=== PATIENT | female | born 1955 | race Caucasian/White ===

== ENCOUNTER 2022-07-11 07:40 | Emergency (ER) | payer OTHER ==
[~2022-07-11] VITALS: Ht 154.9 cm; Wt 72.6 kg
[~2022-07-11 07:40] MED LIST: CEPH500 PO; Norco 5-325 Ta1 EACH PO
[2022-07-11] MEDS ORDERED: CEPH500 PO (07:56)
== END 2022-07-11 11:10 | disposition home or self-care (01) ==
LOC: ER 07:40
DX: I87.2 Venous insufficiency (chronic) (peripheral) (principal); Z88.0 Allergy status to penicillin; Z87.891 Personal history of nicotine dependence
CPT/HCPCS: 99283; A9270

== ENCOUNTER 2022-07-19 00:16 | Day surgery (SDC) | payer SELFPAY | END 2022-07-20 22:39 | disposition home or self-care (01) | LOC: WOUND 00:16 | DX: I87.2 Venous insufficiency (chronic) (peripheral) (principal); L97.812 Non-pressure chronic ulcer of other part of right lower leg with fat layer exposed; L97.822 Non-pressure chronic ulcer of other part of left lower leg with fat layer exposed; I87.313 Chronic venous hypertension (idiopathic) with ulcer of bilateral lower extremity; Z87.891 Personal history of nicotine dependence; Z88.0 Allergy status to penicillin | CPT/HCPCS: A9270; G0463 ==

== ENCOUNTER 2022-07-25 03:36 | Day surgery (SDC) | payer SELFPAY | END 2022-07-25 22:37 | disposition home or self-care (01) | LOC: WOUND 03:36 | DX: I87.313 Chronic venous hypertension (idiopathic) with ulcer of bilateral lower extremity (principal); L97.812 Non-pressure chronic ulcer of other part of right lower leg with fat layer exposed; I87.2 Venous insufficiency (chronic) (peripheral); L97.822 Non-pressure chronic ulcer of other part of left lower leg with fat layer exposed; I73.9 Peripheral vascular disease, unspecified | CPT/HCPCS: G0463 ==

== ENCOUNTER 2022-07-29 00:11 | Day surgery (SDC) | payer SELFPAY | END 2022-07-29 22:35 | disposition home or self-care (01) | LOC: WOUND 00:11 | DX: I87.2 Venous insufficiency (chronic) (peripheral) (principal); I87.313 Chronic venous hypertension (idiopathic) with ulcer of bilateral lower extremity; I73.9 Peripheral vascular disease, unspecified | CPT/HCPCS: G0463 ==

== ENCOUNTER 2022-08-09 00:46 | Day surgery (SDC) | payer SELFPAY | END 2022-08-09 22:50 | disposition home or self-care (01) | LOC: WOUND 00:46 | DX: I87.313 Chronic venous hypertension (idiopathic) with ulcer of bilateral lower extremity (principal); L97.812 Non-pressure chronic ulcer of other part of right lower leg with fat layer exposed; L97.822 Non-pressure chronic ulcer of other part of left lower leg with fat layer exposed; I87.2 Venous insufficiency (chronic) (peripheral); I73.9 Peripheral vascular disease, unspecified | CPT/HCPCS: A9270 ==

== ENCOUNTER 2022-08-23 01:54 | Day surgery (SDC) | payer SELFPAY | END 2022-08-23 23:03 | disposition home or self-care (01) | LOC: WOUND 01:54 | DX: I87.313 Chronic venous hypertension (idiopathic) with ulcer of bilateral lower extremity (principal); I87.2 Venous insufficiency (chronic) (peripheral); I73.9 Peripheral vascular disease, unspecified ==

== ENCOUNTER 2022-08-30 02:24 | Day surgery (SDC) | payer SELFPAY | END 2022-08-30 22:42 | disposition home or self-care (01) | LOC: WOUND 02:24 | DX: I87.313 Chronic venous hypertension (idiopathic) with ulcer of bilateral lower extremity (principal); L97.812 Non-pressure chronic ulcer of other part of right lower leg with fat layer exposed; L97.822 Non-pressure chronic ulcer of other part of left lower leg with fat layer exposed; I87.2 Venous insufficiency (chronic) (peripheral); I73.9 Peripheral vascular disease, unspecified ==

== ENCOUNTER 2022-09-06 00:57 | Day surgery (SDC) | payer OTHER | END 2022-09-06 22:52 | disposition home or self-care (01) | LOC: WOUND 00:57 | DX: I83.018 Varicose veins of right lower extremity with ulcer other part of lower leg (principal); L97.819 Non-pressure chronic ulcer of other part of right lower leg with unspecified severity; L97.829 Non-pressure chronic ulcer of other part of left lower leg with unspecified severity ==

== ENCOUNTER 2022-09-13 02:19 | Day surgery (SDC) | payer OTHER | END 2022-09-13 22:44 | disposition home or self-care (01) | LOC: WOUND 02:19 | DX: I87.313 Chronic venous hypertension (idiopathic) with ulcer of bilateral lower extremity (principal); L97.812 Non-pressure chronic ulcer of other part of right lower leg with fat layer exposed; L97.822 Non-pressure chronic ulcer of other part of left lower leg with fat layer exposed; L97.829 Non-pressure chronic ulcer of other part of left lower leg with unspecified severity; I87.2 Venous insufficiency (chronic) (peripheral); I73.9 Peripheral vascular disease, unspecified ==

== ENCOUNTER 2022-09-20 00:18 | Day surgery (SDC) | payer OTHER | END 2022-09-20 22:57 | disposition home or self-care (01) | LOC: WOUND 00:18 | DX: I87.313 Chronic venous hypertension (idiopathic) with ulcer of bilateral lower extremity (principal); I87.2 Venous insufficiency (chronic) (peripheral); I73.9 Peripheral vascular disease, unspecified ==

== ENCOUNTER 2022-09-27 00:57 | Day surgery (SDC) | payer OTHER | END 2022-09-27 22:53 | disposition home or self-care (01) | LOC: WOUND 00:57 | DX: I87.313 Chronic venous hypertension (idiopathic) with ulcer of bilateral lower extremity (principal); L97.812 Non-pressure chronic ulcer of other part of right lower leg with fat layer exposed; L97.829 Non-pressure chronic ulcer of other part of left lower leg with unspecified severity; I87.2 Venous insufficiency (chronic) (peripheral); I73.9 Peripheral vascular disease, unspecified ==

== ENCOUNTER 2022-10-04 03:36 | Day surgery (SDC) | payer OTHER | END 2022-10-04 22:37 | disposition home or self-care (01) | LOC: WOUND 03:36 | DX: I87.313 Chronic venous hypertension (idiopathic) with ulcer of bilateral lower extremity (principal); L97.512 Non-pressure chronic ulcer of other part of right foot with fat layer exposed; I87.2 Venous insufficiency (chronic) (peripheral); I73.9 Peripheral vascular disease, unspecified | CPT/HCPCS: A9270 ==

== ENCOUNTER 2022-10-11 01:57 | Day surgery (SDC) | payer OTHER | END 2022-10-11 22:56 | disposition home or self-care (01) | LOC: WOUND 01:57 | DX: I87.311 Chronic venous hypertension (idiopathic) with ulcer of right lower extremity (principal); L97.812 Non-pressure chronic ulcer of other part of right lower leg with fat layer exposed; I87.2 Venous insufficiency (chronic) (peripheral); I73.9 Peripheral vascular disease, unspecified ==

== ENCOUNTER 2022-10-16 05:36 | Day surgery (SDC) | payer SELFPAY | END 2022-10-16 22:54 | disposition home or self-care (01) | LOC: WOUND 05:36 | DX: I87.313 Chronic venous hypertension (idiopathic) with ulcer of bilateral lower extremity (principal); L97.812 Non-pressure chronic ulcer of other part of right lower leg with fat layer exposed; I87.2 Venous insufficiency (chronic) (peripheral); I73.9 Peripheral vascular disease, unspecified; L97.829 Non-pressure chronic ulcer of other part of left lower leg with unspecified severity ==

== ENCOUNTER 2022-10-25 01:21 | Day surgery (SDC) | payer SELFPAY | END 2022-10-27 22:37 | disposition home or self-care (01) | LOC: WOUND 01:21 | DX: I87.313 Chronic venous hypertension (idiopathic) with ulcer of bilateral lower extremity (principal); L97.822 Non-pressure chronic ulcer of other part of left lower leg with fat layer exposed; I87.2 Venous insufficiency (chronic) (peripheral); I73.9 Peripheral vascular disease, unspecified | CPT/HCPCS: A9270 ==

== ENCOUNTER 2022-11-01 02:25 | Day surgery (SDC) | payer OTHER | END 2022-11-03 22:50 | disposition home or self-care (01) | LOC: WOUND 02:25 | DX: I87.313 Chronic venous hypertension (idiopathic) with ulcer of bilateral lower extremity (principal); L97.822 Non-pressure chronic ulcer of other part of left lower leg with fat layer exposed; I87.2 Venous insufficiency (chronic) (peripheral); I73.9 Peripheral vascular disease, unspecified ==

== ENCOUNTER 2022-11-08 04:05 | Day surgery (SDC) | payer OTHER | END 2022-11-11 22:49 | disposition home or self-care (01) | LOC: WOUND 04:05 | DX: I87.313 Chronic venous hypertension (idiopathic) with ulcer of bilateral lower extremity (principal); L97.822 Non-pressure chronic ulcer of other part of left lower leg with fat layer exposed; I87.2 Venous insufficiency (chronic) (peripheral); I73.9 Peripheral vascular disease, unspecified | CPT/HCPCS: A9270 ==

== ENCOUNTER → 2022-11-15 | Day surgery (SDC) | payer SELFPAY | LOC: WOUND 03:07 | DX: I87.313 Chronic venous hypertension (idiopathic) with ulcer of bilateral lower extremity (principal); L97.829 Non-pressure chronic ulcer of other part of left lower leg with unspecified severity; L97.822 Non-pressure chronic ulcer of other part of left lower leg with fat layer exposed; I89.0 Lymphedema, not elsewhere classified; I87.2 Venous insufficiency (chronic) (peripheral); I73.9 Peripheral vascular disease, unspecified ==

== ENCOUNTER 2022-12-13 01:08 | Day surgery (SDC) | payer SELFPAY | END 2022-12-13 22:37 | disposition home or self-care (01) | LOC: WOUND 01:08 | DX: I87.313 Chronic venous hypertension (idiopathic) with ulcer of bilateral lower extremity (principal); L97.822 Non-pressure chronic ulcer of other part of left lower leg with fat layer exposed; I87.2 Venous insufficiency (chronic) (peripheral); I73.9 Peripheral vascular disease, unspecified | CPT/HCPCS: G0463 ==

== ENCOUNTER 2023-01-29 08:00 | Day surgery (SDC) | payer OTHER | END 2023-01-29 23:59 | disposition home or self-care (01) | LOC: WOUND 08:00 | DX: L97.822 Non-pressure chronic ulcer of other part of left lower leg with fat layer exposed (principal); L97.812 Non-pressure chronic ulcer of other part of right lower leg with fat layer exposed; I87.2 Venous insufficiency (chronic) (peripheral); I73.9 Peripheral vascular disease, unspecified ==

== ENCOUNTER 2023-02-07 00:52 | Day surgery (SDC) | payer OTHER | END 2023-02-07 22:35 | disposition home or self-care (01) | LOC: WOUND 00:52 | DX: L97.812 Non-pressure chronic ulcer of other part of right lower leg with fat layer exposed (principal); I87.2 Venous insufficiency (chronic) (peripheral); I73.9 Peripheral vascular disease, unspecified | CPT/HCPCS: A9270 ==

== ENCOUNTER 2023-02-14 01:42 | Day surgery (SDC) | payer SELFPAY | END 2023-02-14 22:45 | disposition home or self-care (01) | LOC: WOUND 01:42 | DX: L97.822 Non-pressure chronic ulcer of other part of left lower leg with fat layer exposed (principal); L97.812 Non-pressure chronic ulcer of other part of right lower leg with fat layer exposed; I87.2 Venous insufficiency (chronic) (peripheral); I73.9 Peripheral vascular disease, unspecified ==

== ENCOUNTER 2023-02-21 00:51 | Day surgery (SDC) | payer OTHER | END 2023-02-21 23:06 | disposition home or self-care (01) | LOC: WOUND 00:51 | DX: I89.0 Lymphedema, not elsewhere classified (principal); L97.822 Non-pressure chronic ulcer of other part of left lower leg with fat layer exposed; L97.812 Non-pressure chronic ulcer of other part of right lower leg with fat layer exposed; I87.2 Venous insufficiency (chronic) (peripheral); I73.9 Peripheral vascular disease, unspecified | CPT/HCPCS: G0463 ==

== ENCOUNTER 2023-03-06 03:12 | Day surgery (SDC) | payer OTHER | END 2023-03-06 23:01 | disposition home or self-care (01) | LOC: WOUND 03:12 | DX: L97.822 Non-pressure chronic ulcer of other part of left lower leg with fat layer exposed (principal); L97.812 Non-pressure chronic ulcer of other part of right lower leg with fat layer exposed; I87.2 Venous insufficiency (chronic) (peripheral); I73.9 Peripheral vascular disease, unspecified | CPT/HCPCS: G0463 ==

== ENCOUNTER 2023-03-14 00:33 | Day surgery (SDC) | payer OTHER | END 2023-03-14 22:44 | disposition home or self-care (01) | LOC: WOUND 00:33 | DX: L97.822 Non-pressure chronic ulcer of other part of left lower leg with fat layer exposed (principal); I87.2 Venous insufficiency (chronic) (peripheral) ==

== ENCOUNTER 2023-03-21 02:49 | Day surgery (SDC) | payer OTHER | END 2023-03-21 22:41 | disposition home or self-care (01) | LOC: WOUND 02:49 | DX: L97.812 Non-pressure chronic ulcer of other part of right lower leg with fat layer exposed (principal); I87.2 Venous insufficiency (chronic) (peripheral); I73.9 Peripheral vascular disease, unspecified | CPT/HCPCS: G0463 ==

== ENCOUNTER 2023-03-28 05:00 | Day surgery (SDC) | payer OTHER | END 2023-03-28 22:37 | disposition home or self-care (01) | LOC: WOUND 05:00 | DX: L97.822 Non-pressure chronic ulcer of other part of left lower leg with fat layer exposed (principal); I89.0 Lymphedema, not elsewhere classified; L97.812 Non-pressure chronic ulcer of other part of right lower leg with fat layer exposed; I87.2 Venous insufficiency (chronic) (peripheral); I73.9 Peripheral vascular disease, unspecified | CPT/HCPCS: A9270; G0463 ==

== ENCOUNTER 2023-04-04 03:11 | Day surgery (SDC) | payer OTHER | END 2023-04-04 23:01 | disposition home or self-care (01) | LOC: WOUND 03:11 | DX: L97.822 Non-pressure chronic ulcer of other part of left lower leg with fat layer exposed (principal); L97.812 Non-pressure chronic ulcer of other part of right lower leg with fat layer exposed; I87.2 Venous insufficiency (chronic) (peripheral); I73.9 Peripheral vascular disease, unspecified | CPT/HCPCS: G0463 ==

== ENCOUNTER 2023-04-11 05:08 | Day surgery (SDC) | payer SELFPAY | END 2023-04-11 22:48 | disposition home or self-care (01) | LOC: WOUND 05:08 | DX: L97.822 Non-pressure chronic ulcer of other part of left lower leg with fat layer exposed (principal); L97.812 Non-pressure chronic ulcer of other part of right lower leg with fat layer exposed; I87.2 Venous insufficiency (chronic) (peripheral); I73.9 Peripheral vascular disease, unspecified | CPT/HCPCS: A9270; G0463 ==

== ENCOUNTER 2023-06-24 08:42 | Emergency (ER) | payer SELFPAY ==
[~2023-06-24] VITALS: Ht 154.9 cm; Wt 63.5 kg
[2023-06-24 09:26] VITALS: BP 151/90
[2023-06-24] MEDS ORDERED: FLONASE ALLERG9.9 ML (11:02)
== END 2023-06-24 11:16 | disposition home or self-care (01) ==
LOC: ER 08:42
DX: R04.0 Epistaxis (principal); R60.0 Localized edema; R20.8 Other disturbances of skin sensation; Z88.0 Allergy status to penicillin
CPT/HCPCS: 99283

== ENCOUNTER 2024-05-26 17:10 | Inpatient (IN) | payer MEDICARE ==
[~2024-05-26] VITALS: Ht 154.9 cm; Wt 94.5 kg
[~2024-05-26 17:10] MED LIST changes: +FLONASE ALLERG9.9 ML
[2024-05-26 17:54] LABS: BASOPHILS ABSOLUTE AUTO 0.02 K/mm3 (0.00-0.23); BASOPHILS PERCENT AUTO 0 % (0-2); EOSINOPHILS ABSOLUTE AUTO 0.18 K/mm3 (0.00-0.68); EOSINOPHILS PERCENT AUTO 2 % (0-6); Hematocrit 25.8 % (33.0-51.0); Hemoglobin 7.4 g/dL (11.5-16.0); IMMATURE GRAN ABSOLUTE AUTO 0.04 K/mm3 (0.00-0.10); IMMATURE GRAN PERCENT AUTO 0 % (0-1); LYMPHOCYTES ABSOLUTE AUTO 2.25 K/mm3 (0.84-5.20); LYMPHOCYTES PERCENT AUTO 22 % (21-46); MONOCYTES ABSOLUTE AUTO 0.88 K/mm3 (0.16-1.47); MONOCYTES PERCENT AUTO 9 % (4-13); Mean Corpuscular HGB 24.3 pg (26.0-34.0); Mean Corpuscular HGB Conc 28.7 g/dL (31.5-36.5); Mean Corpuscular Volume 85 fL (80-100); Mean Platelet Volume 10.2 fL (9.1-12.4); NEUTROPHILS ABSOLUTE AUTO 6.84 K/mm3 (1.96-9.15); NEUTROPHILS PERCENT AUTO 67 % (41-73); Platelet Count 237 K/mm3 (150-400); RDW Coefficient Variation 18.3 % (11.7-14.2); RDW Standard Deviation 55.1 fL (35.1-46.3); Red Blood Cell Count 3.05 M/mm3 (3.80-5.20); White Blood Cell Count 10.21 K/mm3 (4.00-11.30)
[2024-05-26 18:18] LABS: Albumin, Blood 2.9 g/dL (3.4-5.0); Albumin/Globulin Ratio 0.7 (0.8-1.8); Bilirubin, Total 0.3 mg/dL (0.1-1.0); Bun/Creatinine Ratio 16.5 (12.0-20.0); Calcium, Blood 8.6 mg/dL (8.5-10.1); Creatinine, Blood 0.73 mg/dL (0.40-1.00); Globulin, Blood 4.2 g/dL (2.2-4.0); Magnesium, Blood 2.6 mg/dL (1.6-2.4); Total Protein, Blood 7.1 g/dL (6.4-8.2)
[2024-05-26] MEDS ORDERED: Pantoprazole Sodium 40 MG Injection IV ONE (20:35)
[2024-05-27] VITALS (13 sets, daily range): BP systolic 121–166; BP diastolic 52–87
[2024-05-27] MEDS ORDERED: Tasprin325 MG PO (00:19)
--- NOTE | 2024-05-27 02:18 | NUR ---
Dr. Pennington notified of elevated D-Dimer 0.88. stated no need for further imaging at this time. also notified of pt's bilateral leg wounds- appears to be venous statis ulcers- orders to keep wounds dressed. Clarified need for 2 units PRBC's- stated to transfuse both units.
[2024-05-27] MEDS ORDERED: FLU VACC TS2024-25(6MOS UP)/PF 45 MCG/0.5 ML SYRINGE IM SCH (04:20)
[2024-05-27] MEDS ORDERED: Lactated Ringer's 1,000 ML IV SCH (05:00)
--- NOTE | 2024-05-27 05:02 | NUR ---
PT YELLING OUT, "I CAN'T BREATH". RESPIRATIONS INCREASED TO 24. BNP IS 329. PT IS CURRENTLY GETTING HER SECOND UNIT OF PRBC'S. DR TRAVIS NOTIFIED, IV LASIX ORDERED.
[2024-05-27] MEDS ORDERED: Furosemide 10 MG/ML 4ML Vial IV ONE (05:05)
[2024-05-27] MEDS ORDERED: Pantoprazole Sodium 40 MG Injection IV SCH (06:00)
--- NOTE | 2024-05-27 07:16 | NUR ---
SHIFT SUMMARY PT ADMITTED TO ROOM 335 AT UT WITH 1ST UNIT PRBC'S INFUSING. PT C/O DIFFICULTY BREATHING AND SOB WITH ACTIVITY. PT YELLS OUT, AND CRIES. ENCOURAGED PT TO USE CALL LIGHT. PT A&O X4. DURING THE SECOND UNIT OF PRBC'S PT'S SOB SYMPTOMS INCREASED WELL INCREASED TACHYPNEA AND HEART RATE . LASIX GIVEN PER ORDER WITH LARGE AMOUNT OF DIURESING. PT'S SOB MUCH IMPROVED. 2 UNITS PRBC'S INFUSED. BILATERAL LEGS WITH WHAT APPEARS TO BE VENOUS STATIS ULCERS- PICTURES IN CHART- WOUNDS DRESSED WITH OIL-EMERSED DRESSING, ABD PADS, AND KERLIX. PT DID NOT SLEEP MORE THAN A COUPLE OF MINUTES AT A TIME. BED IN LOWESST POSITION, CALL LIGHT WITHIN REACH. SIDE RAILS UP X2.
[2024-05-27] MEDS ORDERED: Furosemide 10 MG/ML 4ML Vial IV SCH (09:00)
[2024-05-27] MEDS ORDERED: Albuterol 2.5 MG/3 ML VIAL INH PRN (09:05)
[2024-05-27 10:11] LABS: Base Excess Venous 4.5 mmol/L; Bicarbonate Venous 27.4 mmol/L (24.0-30.0); PCO2 Venous 51.2 mmHg (38-42); pH Blood Venous 7.37 (7.34-7.37)
[2024-05-27 10:41] LABS: Ferritin, Serum 23 ng/mL (8-252); Iron Serum 137 ug/dL (50-170); Percent Saturation 43.8 % (15.0-50.0); Salicylate <1.7 mg/dL (2.8-20.0); Total Iron Binding Capacity 313 ug/dL (250-450)
[2024-05-27 10:46] LABS: Hemoglobin 10.8 g/dL (11.5-16.0)
[2024-05-27] MEDS ORDERED: Peg/Electrolytes 4,000 ML BTL PO ONE (13:55)
--- NOTE | 2024-05-27 17:26 | NUR ---
SHIFT SUMMARY PT AOX4, SBA TO THE BSC. UP TO THE CHAIR THIS SHIFT. PT REPOSITIONS SELF IN BED. BOWEL PREP STARTED THIS SHIFT, PT HAS COMPLETED THE JUG OF BOWEL PREP. MEDICATED FOR NAUSEA ONCE. BOTH UPPER AND LOWER SCOPE PLANNED FOR TOMORROW. PT HAS HAD MODERATE OUTPUT, BROWN AT THIS TIME BUT LOOSE. SHE CALLS AND MAKES HER NEEDS KNOWN. CALL LIGHT WITHIN REACH, BED LOCKED AND IN THE LOWEST POSITION. WILL REPORT TO ONCOMING NURSE.
[2024-05-27] MEDS ORDERED: Ondansetron HCl 2 MG / ML 2ML Vial IV PRN (17:30)
[2024-05-28] VITALS (7 sets, daily range): BP systolic 122–149; BP diastolic 60–75
--- NOTE | 2024-05-28 05:39 | NUR ---
SHIFT SUMMARY PT A&O X4. LABILE EMOTIONS, IRRITABLE AT TIMES. PT VERBALIZING FRUSTRATION WITH BEING NPO FOR PROCEDURE TODAY, YELLING OUT "I WANT WATER" WHEN STAFF MEMBER IS AT BEDSIDE. BOWEL PREP WAS FINISHED PRIOR TO START OF THIS SHIFT. PT WITH CLEAR BILE-TINGED STOOL. PT INDEPENDENT TO BSC, SOME SOB WITH ACTIVITY BUT PT STATES MUCH IMPROVED FROM YESTERDAY. 2L NC WITH SATS > 95%. DRESSINGS CHANGED TO BILATERAL LEG WOUNDS, WOUNDS DRAINING SEROUS FLUID. PT SLEPT INTERMITTENTLY THROUGH THE NIGHT. BED IN LOWEST POSITION, CALL LIGHT WITHIN REACH, SIDE RAILS UP X2.
--- NOTE | 2024-05-28 07:30 | NUR ---
ASSUMED CARE: PT RESTING IN BED AT THIS TIME. 2L O2 VIA NC FOR SOB. CALL LIGHT IN REACH. NPO FOR PROCEDURE. NIGHT RN REPORTS YELLOW STOOL WITH MILD SEDIMENT. NOT WITNESSED PER THIS RN.
[2024-05-28] MEDS ORDERED: NS 1,000 ML IV SCH (08:00)
[2024-05-28 08:57] LABS: BASOPHILS ABSOLUTE AUTO 0.03 K/mm3 (0.00-0.23); BASOPHILS PERCENT AUTO 0 % (0-2); EOSINOPHILS ABSOLUTE AUTO 0.14 K/mm3 (0.00-0.68); EOSINOPHILS PERCENT AUTO 1 % (0-6); Hematocrit 29.2 % (33.0-51.0); IMMATURE GRAN ABSOLUTE AUTO 0.06 K/mm3 (0.00-0.10); IMMATURE GRAN PERCENT AUTO 1 % (0-1); LYMPHOCYTES ABSOLUTE AUTO 1.64 K/mm3 (0.84-5.20); LYMPHOCYTES PERCENT AUTO 13 % (21-46); MONOCYTES PERCENT AUTO 8 % (4-13); Mean Corpuscular HGB Conc 30.8 g/dL (31.5-36.5); Mean Corpuscular Volume 84 fL (80-100); Mean Platelet Volume 10.2 fL (9.1-12.4); NEUTROPHILS ABSOLUTE AUTO 9.41 K/mm3 (1.96-9.15); NEUTROPHILS PERCENT AUTO 77 % (41-73); NRBC ABSOLUTE 0.02 K/mm3 (0.00-0.02); NRBC Auto 0.2 /100 WBC (0.0-0.2); Platelet Count 206 K/mm3 (150-400); RDW Coefficient Variation 17.2 % (11.7-14.2); RDW Standard Deviation 52.4 fL (35.1-46.3); Red Blood Cell Count 3.46 M/mm3 (3.80-5.20); White Blood Cell Count 12.28 K/mm3 (4.00-11.30)
[2024-05-28 09:17] LABS: Albumin, Blood 2.5 g/dL (3.4-5.0); Albumin/Globulin Ratio 0.6 (0.8-1.8); Bilirubin, Total 0.6 mg/dL (0.1-1.0); Calcium, Blood 8.4 mg/dL (8.5-10.1); Creatinine, Blood 0.75 mg/dL (0.40-1.00); Globulin, Blood 3.9 g/dL (2.2-4.0); Potassium, Blood 3.2 mmol/L (3.5-5.5); Total Protein, Blood 6.4 g/dL (6.4-8.2)
[2024-05-28] MEDS ORDERED: Potassium Chloride 20 MEQ/15 ML UDC PO ONE (09:35)
--- NOTE | 2024-05-28 09:45 | NUR ---
PT'S IV INFILTRATED. THIS RN ATTEMPTED IV IN RIGHT HAND WITHOUT SUCCESS. NARROW FABRICS WEAVER AWARE FOR NEED OF NEW IV
--- NOTE | 2024-05-28 10:21 | NUR ---
CLINICAL COORDINATOR AT BEDSIDE ATTEMPTING NEW IV SITE.
--- NOTE | 2024-05-28 10:58 | NUR ---
PT CONTINUES TO HAVE URGENCY OF URINATION. DID RECIEVE LASIX THIS AM. BLADDER SCAN SHOWED 119 PRESENT. PT ALSO C/O HEADACHE. CALL TO DR SWENSON TO ADDRESS THIS. AWAITING NEW ORDERS.
[2024-05-28] MEDS ORDERED: Acetaminophen 160MG / 5ML 10.15 UDC PO PRN (11:00)
[2024-05-28] MEDS ORDERED: Lactated Ringer's 1,000 ML IV SCH (12:50)
--- NOTE | 2024-05-28 13:26 | NUR ---
pt taken to day surgery for procedure
--- NOTE | 2024-05-28 13:33 | NUR ---
History, Chart, Medications and Allergies reviewed before start of procedure.Lungs clear T/O to Auscultation.
[2024-05-28] MEDS ORDERED: propofoL 20 ML IV ONE (14:17)
--- NOTE | 2024-05-28 14:21 | NUR ---
05/28/24 1421 Elisa Son History, Chart, Medications and Allergies reviewed before start of procedure.MONITOR INTACT WITH CONTINUOUS PULSE OXIMETRY, CONTINUOUS END TITAL CO2, AND INTERMITTENT BLOOD PRESSURE.3-LEAD EKG REVIEWED WITH PHYSICIAN PRIOR TO START OF PROCEDURE.O2 VIA POM INTACT THROUGHOUT SEDATION/PROCEDURE.Bite Block Placed.AIB CURRIE PROVIDING MAC-SEE ANESTHESIA RECORD.
--- NOTE | 2024-05-28 15:53 | NUR ---
TIN CUTTER WAS ASSISTING PT TO BSC AND PT WAS ATTEMPTING TO INDEPENDENTLY REMOVE BRIEF AND RESISTING DIRECTION. PT FELL AND LANDED WITH BOTTOM ON IV POLE. NO VISIBLE SIGNS OF BRUISING OR BLEEDING. STATED SHE HIT HER HEAD ON SIDE RAIL AND WHEN ASKED FURTHER SHE STATED THAT HER HEAD WAS HURTING BEFORE HER PROCEDURE. MANAGER SUPPLY CHAIN PLANNING AWARE, CALL TO BED ALARM ON AND SIDE RAILS UP, CALL LIGHT IN REACH.
--- NOTE | 2024-05-28 17:31 | NUR ---
SHIFT SUMMARY: PT'S EGD AND COLONOSCOPY COMPLETED. POSSIBLE DC TO SNF PER LINE CLOSER. PT FELL THIS AFTERNOON. MADE AWARE AND WANTS HEAD CT. AWAITING IMAGING TO SCHEDULE. PT IN BED WITH 3 SIDE RAILS AND BED ALARM. NO FURTHER NEEDS OR CONCERNS AT THIS TIME.
--- NOTE | 2024-05-28 18:08 | NUR ---
PT TAKEN TO CT VIA WHEEL CHAIR BY TRANSPORT STAFF.
[2024-05-29] MEDS ORDERED: FentaNYL Citrate 50 MCG/ML 2 ML Injection IV ONE (00:05)
[2024-05-29] MEDS ORDERED: Nitroglycerin 0.4 MG SUBL SL ONE (00:10)
[2024-05-29] MEDS ORDERED: Nitroglycerin 0.4 MG SUBL ONE (00:21)
--- NOTE | 2024-05-29 01:34 | NUR ---
ON 05/28/24 AT 2345 STAFF PSYCHIATRIST ADRESSED ME TO SAY THAT PT REPORTD CP. I WENT TO ROOM AND PT REPORTED CP AND PRESSURE ON CHEST W A PAIN LEVEL OF 3/10. VITALS WERE TAKEN AND WNL FOR PT. I CALLED HOSPITALSIST WHO WANTED AN EKG COMPLETED AND THEN TO CALL BACK. EKG COMPLETED AND NOTIFIED. ORDERED 50MCG OF FENTANYL IV AND SL NITRO (SEE eMAR). PT'S PAIN/PRESSURE IS NOW RESOLVED AND NOTIFIED. PT ALSO PLACED ON TELE AND PURE WICK IN PLACE. PURE WICK WAS APPROVED FOR PURE WICK FOR SAFETY REASONS BECAUSE PT HAS NEVER HAD CP OR FENTANYL BEFORE AND HAD A FALL IN PREV SHIFT. I ALSO CHANGED PT'S BOTH LOWER LEG BANDAGES BECAUSE THEY WERE SOILED AND FALLING OFF. I EXPLAINED TO THE PT THE SAFETY REASONS FOR THE PURE WICK AND BED RIZVI USE AND SHE IS IRRITATED BUT NOW RESTING W/CALL LIGHT IN REACH. CURRENTLY ON 4L OF O2.
[2024-05-29 02:55] VITALS: BP 130/63
--- NOTE | 2024-05-29 06:13 | NUR ---
SHIFT SUMM: PT IS A 69 YO FULL CODE WHO WAS ADMITTED FOR MELENA. PT HAD AN UPPER/LOWER COLONOSCOPY ON PREV SHIFT AND NO BLEEDING BUT DIVERTICULOSIS WAS NOTED. PT HAS A JOSSELIN PG. PT IS A&OX3-4 ON 4 L OF OXYGEN AND BASELINE AT HOME IS RA. PT IS ON TELE NOW AFTER EXPERIENCING CP/PRESSURE EARLIER IN SHIFT (SEE PREV NOTE). PTS TELE IS SINUS TACH AT 103 BPM. PT FELL YESTERDAY ON PREV SHIFT AND HIT HER HEAD, CT WAS DONE AND NOTHING TO REPORT. EKG WAS COMPLETED W/NO DIFFERENCE AND HOSPITALIST REVIEWED. PT IS ON STRICT I&O'S AND HAS A PURE WICK SINCE PT WAS HAVING CHEST PAIN I DIDNT WANT HER OUT OF BED TILL SHE FELT BETTER.PT HAS CALL LIGHT IN REACH.
--- NOTE | 2024-05-29 06:33 | NUR ---
PT YELLING AT STAFF AND CONSUMER INSIGHT ANALYST. PT REPORTS NOT BEING ABLE TO BREATH I HAVE A PULSE OX MONITOR ON PATIENT AND HER O2 IS AT 94-96%.
[2024-05-29 06:44] LABS: BASOPHILS ABSOLUTE AUTO 0.03 K/mm3 (0.00-0.23); BASOPHILS PERCENT AUTO 0 % (0-2); EOSINOPHILS ABSOLUTE AUTO 0.12 K/mm3 (0.00-0.68); EOSINOPHILS PERCENT AUTO 1 % (0-6); Hematocrit 29.1 % (33.0-51.0); Hemoglobin 8.7 g/dL (11.5-16.0); IMMATURE GRAN ABSOLUTE AUTO 0.06 K/mm3 (0.00-0.10); IMMATURE GRAN PERCENT AUTO 1 % (0-1); LYMPHOCYTES ABSOLUTE AUTO 1.66 K/mm3 (0.84-5.20); LYMPHOCYTES PERCENT AUTO 14 % (21-46); MONOCYTES ABSOLUTE AUTO 1.11 K/mm3 (0.16-1.47); MONOCYTES PERCENT AUTO 9 % (4-13); Mean Corpuscular HGB 25.7 pg (26.0-34.0); Mean Corpuscular HGB Conc 29.9 g/dL (31.5-36.5); Mean Corpuscular Volume 86 fL (80-100); Mean Platelet Volume 10.2 fL (9.1-12.4); NEUTROPHILS ABSOLUTE AUTO 9.03 K/mm3 (1.96-9.15); NEUTROPHILS PERCENT AUTO 75 % (41-73); Platelet Count 186 K/mm3 (150-400); RDW Coefficient Variation 17.4 % (11.7-14.2); RDW Standard Deviation 53.7 fL (35.1-46.3); Red Blood Cell Count 3.39 M/mm3 (3.80-5.20); White Blood Cell Count 12.01 K/mm3 (4.00-11.30)
[2024-05-29 07:34] VITALS: BP 127/55
[2024-05-29 07:34] LABS: Albumin, Blood 2.5 g/dL (3.4-5.0); Albumin/Globulin Ratio 0.6 (0.8-1.8); Bilirubin, Total 0.6 mg/dL (0.1-1.0); Bun/Creatinine Ratio 11.1 (12.0-20.0); Calcium, Blood 8.4 mg/dL (8.5-10.1); Creatinine, Blood 0.72 mg/dL (0.40-1.00); Potassium, Blood 3.6 mmol/L (3.5-5.5); Total Protein, Blood 6.5 g/dL (6.4-8.2)
[2024-05-29 12:37] VITALS: BP 123/62
--- NOTE | 2024-05-29 14:50 | NUR ---
DR HALE CONTACTED REGARDING NEW WOUND ORDERS ADN OXYGEN ORDER PATIENT IS REQUIRING BETWEEN 2-3L N/C. WOUND ORDERS TO RIGHT/LEFT LOWER LEG. CLEANSE WOUNDS WITH WOUND CLEANSER, PAT DRY, APPLY OIL EMULSION DRESSING AND COVER WITH ABDOMINAL PAD AND ROLLED GAUZE. PATEINT HAS VENOUS STATIS ULCERS.
[2024-05-29 16:10] VITALS: BP 112/56
[2024-05-29 16:42] LABS: Calcium, Blood 8.3 mg/dL (8.5-10.1); Creatinine, Blood 0.77 mg/dL (0.40-1.00); Potassium, Blood 3.2 mmol/L (3.5-5.5)
--- NOTE | 2024-05-29 18:05 | NUR ---
SHIFT SUMMARY: PATIENT A/O X 4. PATIENT HAS BEEN UP IN CHAIR MOST OF THE DAY. PATIENT IS ABLE TO WALK WITH STANDBY ASSIST AND FWW. PATIENT ON OXYGEN 3L N/C HOWEVER DOES NOT REQUIRE AT BASELINE UNCLEAR IF THIS IS PATIENT NEW BASELINE. PATIENT HAS BEEN STATING SHE DOES NOT WANT TO GO HOME AND WANTS TO STAY IN HOSPITAL. PATIENT STATES SHE DOES NOT WANT TO GO WITH THE RATS IN HER HOME AND WANTS HOSPTIAL TO FIND A NEW HOME. PATIENT HAS BEEN WORKING WITH CASE MANAGMENT AND HAS ASSISTED MEDICAID APPT JUN 14. PATIENT IS ABLE TO CALL FOR ANY ASSISTANCE AND VOICE HER NEEDS
[2024-05-29] MEDS ORDERED: Potassium Chl 20MEQ/Water100ML 100 ML IV SCH (18:40)
[2024-05-29] MEDS ORDERED: Potassium Chloride 40 MEQ in NS 250 ML IV STA (18:43)
[2024-05-29] MEDS ORDERED: Enoxaparin 40 MG/0.4 ML SYR SC SCH (19:00)
[2024-05-29 19:46] VITALS: BP 138/62
[2024-05-30] MEDS ORDERED: LORazepam 0.5 MG Tab PO ONE (00:50)
[2024-05-30] MEDS ORDERED: Albuterol 2.5 MG/3 ML VIAL INH PRN (01:10)
--- NOTE | 2024-05-30 01:15 | NUR ---
I CALLED THE HOSPITALIST BECAUSE PT COMPLAINS OF NOT BEING ABLE TO BREATHE AND I CHECKED VITALS AND HER 02 STATS ARE NORMAL AND ON 3L WITH O2 IN THE HIGH 90'S. PT ALSO RECEIVED AN IS TO HELP COUGH AND ENCOURAGED TO DEEP BREATHE FOR COARSENESS. PT APPEARS TO BE VERY ANXIOUS. HOSPITALIST ORDERED BD PROTOCOL BREATHING TREATMENT AND ONCE PO 0.5 ATIVAN AT 0050. RT CAME UP AND EVALUATED PT AND GAVE BREATHINF TREATMENT AND ATIVAN WAS GIVEN TO PT. PT KEEPS STATING THAT SHE THINKS SHE "IS GETTING WORSE" I ASSURED HER THAT HER VITALS ARE WNL. I ALSO CHANGED PT'S DRESSINGS ON BOTH LOWER CALVES. PT HAS AN ORDER FOR OILED EMULSION DRESSING AND WRAPPED WITH GAUZE. PT IS IRRITABLE AND HOLLERS OUT OFTEN AND SOMETIMES YELLS AT STAFF. PT NEEDS TO GET SOME SLEEP SHE HAS BEEN UP SO FAR THE WHOLE SHIFT AND USES CALL LIGHT OFTEN.
[2024-05-30 02:46] VITALS: BP 147/54
--- NOTE | 2024-05-30 04:03 | NUR ---
SHIFT SUMMARY: PT IS A 69 YO FULL CODE WHO WAS ADMITTED FOR MELENA(NOW RESOLVED). SOUNDS LIKE P IS AWAITING PLACEMENT AND WILL D/C WITH OXYGEN AFTER O2 EVAL. PT HAD AN EPISODE OF ANXIETY LAST NIGHT AND FEELING LIKE SHE COULD BREATHE BUT SATS WERE WNL (SEE PREV NOTE). PT RECEIVED BREATHING TREATMENT AND ATIVAN PER HOSPITALIST. PT HAS A PURE WICK IN PLACE WITH SOME INCON AND A PULL UP ON. PT WENT TO BS AND HAD A SMALL BM. PT STAYED AWAKE UNTIL ABOUT 3AM AND THEN FINALLY WENT TO SLEEP FOR THE NIGHT. PT USES CALL LIGHT OFTEN AND HOLLERS AT THE STAFF. PT RECEIVED WOUND CARE AND NEW BANDAGES ON LEGS. PT HAS A JOSSELIN PG. PT HAD A BLOODY NOSE LAST NIGHT AND SHE SAID SHE "PICKED HER NOSE TO HARD AND CAUSED IT".PT IS ON TELE WITH SINUS TACH AT 102 AND 1ST DEG BLOCK AND OCCASIONAL PAC'S. NEW PURE WICK WAS PLACED. PT ASLEEP NOW W/CALL LIGHT IN REACH.
[2024-05-30 05:30] LABS: BASOPHILS ABSOLUTE AUTO 0.02 K/mm3 (0.00-0.23); BASOPHILS PERCENT AUTO 0 % (0-2); EOSINOPHILS ABSOLUTE AUTO 0.19 K/mm3 (0.00-0.68); EOSINOPHILS PERCENT AUTO 2 % (0-6); IMMATURE GRAN ABSOLUTE AUTO 0.03 K/mm3 (0.00-0.10); IMMATURE GRAN PERCENT AUTO 0 % (0-1); LYMPHOCYTES ABSOLUTE AUTO 1.89 K/mm3 (0.84-5.20); LYMPHOCYTES PERCENT AUTO 17 % (21-46); MONOCYTES ABSOLUTE AUTO 1.14 K/mm3 (0.16-1.47); MONOCYTES PERCENT AUTO 10 % (4-13); Mean Corpuscular HGB 26.2 pg (26.0-34.0); Mean Corpuscular Volume 88 fL (80-100); Mean Platelet Volume 10.1 fL (9.1-12.4); NEUTROPHILS ABSOLUTE AUTO 8.08 K/mm3 (1.96-9.15); NEUTROPHILS PERCENT AUTO 71 % (41-73); Platelet Count 194 K/mm3 (150-400); RDW Coefficient Variation 17.9 % (11.7-14.2); RDW Standard Deviation 55.8 fL (35.1-46.3); Red Blood Cell Count 3.43 M/mm3 (3.80-5.20); White Blood Cell Count 11.35 K/mm3 (4.00-11.30)
[2024-05-30 06:00] LABS: Bun/Creatinine Ratio 15.5 (12.0-20.0); Calcium, Blood 8.5 mg/dL (8.5-10.1); Creatinine, Blood 0.77 mg/dL (0.40-1.00); Potassium, Blood 3.7 mmol/L (3.5-5.5)
[2024-05-30 07:26] VITALS: BP 129/74
[2024-05-30] MEDS ORDERED: Furosemide 10 MG / ML 2ML Vial IV SCH (09:00)
[2024-05-30] MEDS ORDERED: Potassium Chl 10MEQ/Water100ML 100 ML IV SCH (09:00)
[2024-05-30] MEDS ORDERED: Ondansetron 4 MG SoluTab MM PRN (13:50)
[2024-05-30] MEDS ORDERED: Metoprolol Succinate 25 MG TABCR PO SCH (14:00)
--- NOTE | 2024-05-30 14:22 | NUR ---
PATIENT WAS SEEN BY PHYSICAL THERAPY AND WAS STATING TO THERAPIST SHE WAS UNABLE TO WALK HOWEVER THIS NURSE PHYSICAL THERAPIST PATIENT IS ABLE TO WALK, PATIENT DEMONSTRATED TO PHYSICAL THERPIST SHE IS ABLE TO STAND, PIVOT, WALK ADN AMBULATE IN ROOM WITH SBA.
--- NOTE | 2024-05-30 14:53 | NUR ---
PATIENT HAD NOSE BLEED WITH SMALL AMOUNTS OF BLOOD NOTED ON FLOOR. PATIENT WAS GIVEN ICE TO STOP BLEEDING AND DR HALE NOTIFIED OF NOSE BLEED. NO FURTHER ORDERS GIVEN AT THIS TIME.
[2024-05-30 15:44] VITALS: BP 116/51
[2024-05-30 20:03] VITALS: BP 127/72
[2024-05-31 02:19] VITALS: BP 124/63
--- NOTE | 2024-05-31 03:32 | NUR ---
PT A&O, COOPERATIVE W/CARES, VSS, WAS UP FREQUENTLY TO VOID DURING THE NIGHT W/SBA TO BSC, DENIED PAIN, REMAINS ON 2L O2 VIA NASAL CANULA (AM SAT=97%), TELE ST IN LOW 100'S, BEDRESTING AT THIS TIME WATCHING TV, CALL LIGHT IN REACH, ABLE TO MAKE NEEDS KNOWN, WILL CONT TO MONITOR UNTIL REPORT GIVEN TO ONCOMING NURSE.
[2024-05-31 05:37] LABS: Hematocrit 31.1 % (33.0-51.0); Hemoglobin 9.3 g/dL (11.5-16.0); Mean Corpuscular HGB 26.1 pg (26.0-34.0); Mean Corpuscular HGB Conc 29.9 g/dL (31.5-36.5); Mean Corpuscular Volume 87 fL (80-100); Platelet Count 200 K/mm3 (150-400); RDW Coefficient Variation 18.1 % (11.7-14.2); RDW Standard Deviation 56.5 fL (35.1-46.3); Red Blood Cell Count 3.57 M/mm3 (3.80-5.20); White Blood Cell Count 9.84 K/mm3 (4.00-11.30)
[2024-05-31] MEDS ORDERED: Pantoprazole Sodium 40 MG Tab PO SCH (06:00)
[2024-05-31 06:14] LABS: Bun/Creatinine Ratio 16.1 (12.0-20.0); Calcium, Blood 8.8 mg/dL (8.5-10.1); Creatinine, Blood 0.62 mg/dL (0.40-1.00); Potassium, Blood 3.4 mmol/L (3.5-5.5)
[2024-05-31 08:07] VITALS: BP 117/64
[2024-05-31] MEDS ORDERED: Furosemide 20 MG Tab PO SCH (09:00)
[2024-05-31] MEDS ORDERED: Empagliflozin 10 MG TAB PO SCH (09:00)
[2024-05-31] MEDS ORDERED: Potassium Chloride 10 Meq Tablet SA PO SCH (09:00)
[2024-05-31 12:36] LABS: CORONAVIRUS COVID-19 AG Negative (NEGATIVE); INFLUENZA A AG Negative (NEGATIVE); INFLUENZA B AG Negative (NEGATIVE)
--- NOTE | 2024-05-31 13:47 | NUR ---
[facility]. REPORT GIVEN TO RN. FRIEND, YAKELIN, UPDATED BY PHONE.
[2024-05-31] MEDS ORDERED: FURO20 PO (14:39)
[2024-05-31] MEDS ORDERED: JARDIANCE10 MG PO (14:39)
[2024-05-31] MEDS ORDERED: Acetaminophen325 M1 PO (14:39)
[2024-05-31] MEDS ORDERED: ONDA4ODT MM (14:40)
[2024-05-31] MEDS ORDERED: METO25ER PO (14:40)
[2024-05-31] MEDS ORDERED: POTA10T PO (14:41)
[2024-05-31] MEDS ORDERED: PANT40 PO (14:41)
== END 2024-05-31 13:42 | DRG 377 ==
LOC: ER 17:10 → MEDS 17:11
PROVIDERS: Internal Medicine; Physician Assistant; Surgery; ADMIT Internal Medicine
PROC: 30233N1 Transfusion of Nonautologous Red Blood Cells into Peripheral Vein, Percutaneous Approach (ICD-10-PCS; 2024-05-26)
PROC: 0DB68ZX Excision of Stomach, Via Natural or Artificial Opening Endoscopic, Diagnostic (ICD-10-PCS; principal; 2024-05-28 13:30)
PROC: 0DJD8ZZ Inspection of Lower Intestinal Tract, Via Natural or Artificial Opening Endoscopic (ICD-10-PCS; 2024-05-28 13:30)
DX: K29.51 Unspecified chronic gastritis with bleeding (principal); J96.01 Acute respiratory failure with hypoxia; E87.1 Hypo-osmolality and hyponatremia; I50.30 Unspecified diastolic (congestive) heart failure; K57.31 Diverticulosis of large intestine without perforation or abscess with bleeding; M19.90 Unspecified osteoarthritis, unspecified site; I87.2 Venous insufficiency (chronic) (peripheral); I44.0 Atrioventricular block, first degree; F41.9 Anxiety disorder, unspecified; W18.39XA Other fall on same level, initial encounter; D63.8 Anemia in other chronic diseases classified elsewhere; E66.9 Obesity, unspecified; Z79.82 Long term (current) use of aspirin; Z88.0 Allergy status to penicillin; Z88.8 Allergy status to other drugs, medicaments and biological substances; Z87.891 Personal history of nicotine dependence; Z90.49 Acquired absence of other specified parts of digestive tract; Z98.890 Other specified postprocedural states; Z68.39 Body mass index [BMI] 39.0-39.9, adult
CPT/HCPCS: 36415; 36430; 70450; 71046; 80048; 80053; 82728; 82803; 83540; 83550; 83605; 83735; 83880; 84145; 84484; 85014; 85018; 85025; 85027; 85379; 86850; 86900; 86901; 86923; 87040; 87428-QW; 88305; 88342; 93005; 93010; 93306; 94640; 94760; 94761; 96374; 96375; 96376; 97110; 97161; 97530; 99285-25; A9270; G0378; G0480; J1650; J1940; J2405; J2470; J2704; J3010; J3480; J7050; J7120; P9016